=== PATIENT | male | born 1975 | race Caucasian/White ===

== ENCOUNTER 2019-01-28 06:47 | Emergency (ER) | payer OTHER ==
[~2019-01-28] VITALS: Ht 170.2 cm; Wt 70.3 kg
--- NOTE | 2019-01-28 07:37 | RAD ---
Right great toe 3 views 01/28/2019. Reason for exam: Injury. There is suggestion of some soft tissue swelling. No fracture or dislocation is seen. There is no apparent foreign body. IMPRESSION: No acute abnormality. Electronically signed by: Jeff Gardiner Jr., MD (01/28/2019 7:34 AM) [facility]
[2019-01-28] MEDS ORDERED: MELO7.5T29 PO (07:39)
--- NOTE | 2019-01-28 07:40 | PHYS DOC ---
Past History Past Medical History: No Pertinent History Past Surgical History: Other Additional Past Surgical Histo: shoulder Smoking: Non-smoker Alcohol Use: Occasionally Drug Use: None Adult General Chief Complaint Chief Complaint: FOOT INJURY PAIN HPI HPI Patient is a 43-year-old male presents complaining of right great toe pain. He accidentally kicked the curb while barefoot yesterday while chasing his kids. No bleeding. No nail separation. Increased pain with movement and touch. Improved with ibuprofen. No previous injury. Pain is moderate in intensity. No numbness or tingling. No radiation of the discomfort.[] Review of Systems Review of Systems Constitutional: Denies fever or chills [] Eyes: Denies change in visual acuity, redness, or eye pain [] HENT: Denies nasal congestion or sore throat [] Respiratory: Denies cough or shortness of breath [] Cardiovascular: Chest pain or palpitations[] GI: Denies abdominal pain, nausea, vomiting, bloody stools or diarrhea [] : Denies dysuria or hematuria [] Musculoskeletal: Denies back pain, see history of present illness[] Integument: Denies rash or skin lesions [] Neurologic: Denies headache, focal weakness or sensory changes [] Endocrine: Denies polyuria or polydipsia [] All other systems were reviewed and found to be within normal limits, except as documented in this note. Allergies Allergies Allergies Coded Allergies Type Severity Reaction Last Updated Verified No Known Drug Allergies 01/28/19 No Physical Exam Physical Exam Constitutional: Well developed, well nourished, no acute distress, non-toxic appearance. [] HENT: Normocephalic, atraumatic, bilateral external ears normal, oropharynx mo ist, no oral exudates, nose normal. [] Eyes: PERRLA, EOMI, conjunctiva normal, no discharge. [] Neck: Normal range of motion, no tenderness, supple, no stridor. [] Cardiovascular:Heart rate regular rhythm, no murmur [] Lungs & Thorax: Bilateral breath sounds clear to auscultation [] Abdomen: Not examined[] Skin: Warm, dry, no erythema, no rash. [] Back: No tenderness, no CVA tenderness. [] Extremities: Tenderness to palpation of the right great toe. There is no subungual hematoma. Full range of motion. There is some edema noted. No bruising. No erythema. Patient is distally neurovascularly intact. The other extremities show: No tenderness, no cyanosis, no clubbing, ROM intact, no edema. [] Neurologic: Alert and oriented X 3, normal motor function, normal sensory function, no focal deficits noted. [] Psychologic: Affect normal, judgement normal, mood normal. [] Current Patient Data Vital Signs Vital Signs Date Time Temp Pulse Resp B/P (MAP) Pulse Ox O2 Delivery O2 Flow Rate FiO2 01/28/19 06:55 60 18 99 Room Air EKG EKG [] Radiology/Procedures Radiology/Procedures X-ray of the right great toe does not show any fracture or dislocation.[] Course & Med Decision Making Course & Med Decision Making Pertinent Labs and Imaging studies reviewed. (See chart for details) ED course: Patient arrived, was placed in bed, and tolerated exam well. His great and second toe were kaiden taped after the return of the imaging findings. He was distally neurovascularly intact after the kaiden taping. The findings were discussed with the patient voiced understanding. All questions were answered. Patient was discharged in improved condition. Medical decision making: There is no evidence of a fracture, dislocation, tenderness, ligamentous, nor neurologic or vascular injury to the toe.[] Dragon Disclaimer Dragon Disclaimer This electronic medical record was generated, in whole or in part, using a voice recognition dictation system. Departure Departure: Impression: Primary Impression: Toe injury Disposition: HOME, SELF-CARE Condition: IMPROVED Referrals: CARLOS ENRIQUE DESIR (PCP) Follow-up in 2 days Patient Instructions: Kaiden Taping of Toes Additional Instructions: Follow-up with your regular doctor in 2 days. Return to the ER if worsening pain or any other concerns. Scripts Meloxicam (MELOXICAM) 7.5 Mg Tablet 7.5 MG PO DAILY for PAIN, #20 TAB Prov: YAMIL MONTES DO 01/28/19 Problem Qualifiers Primary Impression: Toe injury Encounter type: initial encounter Laterality: right Qualified Codes: S99.921A - Unspecified injury of right foot, initial encounter YAMIL MONTES DO January 28, 2019 07:39
[2019-01-28 07:50] VITALS: BP 116/80
== END 2019-01-28 07:46 | disposition home or self-care (01) ==
LOC: ER 06:47
DX: S99.921A Unspecified injury of right foot, initial encounter (principal); W22.8XXA Striking against or struck by other objects, initial encounter; Y93.89 Activity, other specified; Y92.89 Other specified places as the place of occurrence of the external cause; Y99.8 Other external cause status
CPT/HCPCS: 73660; 99284